=== PATIENT | female | born 1960 | race Caucasian/White ===

== ENCOUNTER 2021-08-12 07:12 | Outpatient (CLI) | payer OTHER | END 2021-08-12 07:17 | disposition home or self-care (01) | LOC: NUCLEAR 07:12 | PROVIDERS: ATTEND Internal Medicine Gastroenterology | DX: K57.30 Diverticulosis of large intestine without perforation or abscess without bleeding (principal); K59.04 Chronic idiopathic constipation | CPT/HCPCS: 78264; A9541 ==